=== PATIENT | female | born 1970 | race Caucasian/White ===

== ENCOUNTER 2021-04-14 10:35 | Emergency (ER) | payer SELFPAY ==
[2021-04-14] MEDS ORDERED: MORPHINE 4 MG/1 ML INJ IV ONE (11:21)
[2021-04-14] MEDS ORDERED: SODIUM CHLORIDE 0.9% 1000 ML 1,000 ML IV ONE (11:21)
[2021-04-14] MEDS ORDERED: ONDANSETRON 4 MG/2 ML INJ IV ONE (11:21)
[2021-04-14 11:40] LABS: Basophils % (Auto) 0.4 % (0.0-1.8); Hematocrit 47.2 % (30.3-42.9); Hemoglobin 15.2 gm/dl (10.1-14.3); Lymphocytes # (Auto) 2.2 K/mm3 (1.2-5.4); Lymphocytes % (Auto) 18.5 % (13.4-35.0); Mean Corpuscular HGB Conc 32 % (30-34); Mean Corpuscular Volume 90 fl (79-97); Monocytes % (Auto) 8.2 % (0.0-7.3); Platelet Count 242 K/mm3 (140-440); Red Blood Count 5.27 M/mm3 (3.65-5.03)
[2021-04-14] MEDS ORDERED: FAMOTIDINE 20 MG/2 ML INJ IV ONE (11:59)
--- NOTE | 2021-04-14 11:59 | Emergency Department Report ---
ED General Adult HPI - General Chief complaint: Abdominal Pain Stated complaint: VOMITING Time Seen by Provider: 04/14/21 10:56 Source: patient Mode of arrival: Ambulatory Limitations: Language Barrier - History of Present Illness Initial comments: 50-year-old female patient presents with complaints of abdominal pain and vomiting x3 days. She states she was seen by her doctor and given an unknown shot for symptoms, however she has had no symptom improvement. She denies any hematemesis/coffee-ground emesis, diarrhea, fever/chills/sweats, c hest pain, or shortness of breath. She has a history of hypertension and diabetes. She states the pain is mainly in the right upper quadrant area and also complains of constipation. Severity scale (0 -10): 7 - Related Data Home Medications Medication Instructions Recorded Confirmed Last Taken Hyoscyamine Rapdis 0.125 mg 0.125 mg PO DAILY 04/14/21 04/14/21 Unknown Pantoprazole [Protonix TAB] 40 mg PO DAILY 04/14/21 04/14/21 Unknown Previous Rx's Medication Instructions Recorded Last Taken Type Docusate Sodium [Colace] 100 mg PO BID PRN 7 Days #14 04/14/21 Unknown Rx capsule Famotidine [Pepcid] 20 mg PO BID 10 Days #20 tablet 04/14/21 Unknown Rx Ondansetron [Zofran Odt] 4 mg PO Q8HR PRN #12 tab.rapdis 04/14/21 Unknown Rx Allergies Allergy/AdvReac Type Severity Reaction Status Date / Time albuterol [From Ventolin HFA] Allergy Unknown Verified 04/01/17 17:38 ED Review of Systems ROS: Stated complaint: VOMITING Other details as noted in HPI Constitutional: denies: chills, fever Cardiovascular: denies: chest pain Gastrointestinal: abdominal pain, nausea, vomiting, constipation. denies: hematemesis, melena Genitourinary: denies: urgency, dysuria, frequency, hematuria Neurological: denies: headache, weakness Hematological/Lymphatic: denies: easy bleeding ED Past Medical Hx - Past Medical History Hx Hypertension: Yes Hx Diabetes: Yes - Surgical History Hx Appendectomy: Yes (x 25 years) - Social History Smoking Status: Former Smoker Substance Use Type: None - Medications Home Medications: Home Medications Medication Instructions Recorded Confirmed Last Taken Type Docusate Sodium [Colace] 100 mg PO BID PRN 7 Days #14 04/14/21 Unknown Rx capsule Famotidine [Pepcid] 20 mg PO BID 10 Days #20 tablet 04/14/21 Unknown Rx Hyoscyamine Rapdis 0.125 mg 0.125 mg PO DAILY 04/14/21 04/14/21 Unknown History Ondansetron [Zofran Odt] 4 mg PO Q8HR PRN #12 tab.rapdis 04/14/21 Unknown Rx Pantoprazole [Protonix TAB] 40 mg PO DAILY 04/14/21 04/14/21 Unknown History ED Physical Exam - General Limitations: Language Barrier General appearance: alert, in no apparent distress - Head Head exam: Present: atraumatic, normocephalic - Eye Eye exam: Present: normal appearance. Absent: scleral icterus - Neck Neck exam: Present: normal inspection - Respiratory Respiratory exam: Present: normal lung sounds bilaterally. Absent: respiratory distress - Cardiovascular Cardiovascular Exam: Present: regular rate, normal rhythm - GI/Abdominal GI/Abdominal exam: Present: soft, tenderness (Mid abdomen/right upper quadrant), normal bowel sounds. Absent: distended, rebound - Extremities Exam Extremities exam: Present: full ROM - Neurological Exam Neurological exam: Present: alert, oriented X3 - Psychiatric Psychiatric exam: Present: normal affect, normal mood - Skin Skin exam: Present: warm, dry, intact, normal color. Absent: rash ED Course Vital Signs 04/14/21 04/14/21 10:42 12:30 Temperature 97.3 F L Pulse Rate 82 Respiratory 14 16 Rate Blood Pressure 136/76 [Right] O2 Sat by Pulse 99 Oximetry ED Medical Decision Making - Lab Data Result diagrams: 04/14/21 11:20 04/14/21 11:20 Lab Results 04/14/21 04/14/21 04/14/21 Range/Units 11:20 11:20 Unknown WBC 11.9 H (4.5-11.0) K/mm3 RBC 5.27 H (3.65-5.03) M/mm3 Hgb 15.2 H (10.1-14.3) gm/dl Hct 47.2 H (30.3-42.9) % MCV 90 (79-97) fl MCH 29 (28-32) pg MCHC 32 (30-34) % RDW 14.0 (13.2-15.2) % Plt Count 242 (140-440) K/mm3 Lymph % (Auto) 18.5 (13.4-35.0) % [place] % (Auto) 8.2 H (0.0-7.3) % Eos % (Auto) 0.0 (0.0-4.3) % Baso % (Auto) 0.4 (0.0-1.8) % Lymph # (Auto) 2.2 (1.2-5.4) K/mm3 Merrick # (Auto) 1.0 H (0.0-0.8) K/mm3 Eos # (Auto) 0.0 (0.0-0.4) K/mm3 Baso # (Auto) 0.0 (0.0-0.1) K/mm3 Seg Neutrophils % 72.9 H (40.0-70.0) % Seg Neutrophils # 8.7 H (1.8-7.7) K/mm3 Sodium 137 (137-145) mmol/L Potassium 4.5 (3.6-5.0) mmol/L Chloride 97.4 L (98-107) mmol/L Carbon Dioxide 26 (22-30) mmol/L Anion Gap 18 mmol/L BUN 17 (7-17) mg/dL Creatinine 0.6 (0.6-1.2) mg/dL Estimated GFR > 60 ml/min BUN/Creatinine Ratio 28 % Glucose 147 H (65-100) mg/dL Calcium 11.5 H (8.4-10.2) mg/dL Total Bilirubin 0.90 (0.1-1.2) mg/dL AST 18 (5-40) units/L ALT 27 (7-56) units/L Alkaline Phosphatase 100 (35-129) units/L Total Protein 8.6 H (6.3-8.2) g/dL Albumin 4.6 (3.9-5) g/dL Albumin/Globulin Ratio 1.2 % Lipase 36 (13-60) units/L Urine Color Yellow (Yellow) Urine Turbidity Clear (Clear) Urine pH 5.0 (5.0-7.0) Ur Specific [place] 1.021 (1.003-1.030) Urine Protein 30 mg/dl (Negative) mg/dL Urine Glucose (UA) Neg (Negative) mg/dL Urine Ketones 20 (Negative) mg/dL Urine Blood Neg (Negative) Urine Nitrite Neg (Negative) Urine Bilirubin Neg (Negative) Urine Urobilinogen < 2.0 (<2.0) mg/dL Ur Leukocyte Esterase Neg (Negative) Urine WBC (Auto) 1.0 (0.0-6.0) /HPF Urine RBC (Auto) 1.0 (0.0-6.0) /HPF U Epithel Cells (Auto) 6.0 (0-13.0) /HPF Urine Mucus 1+ /HPF - Radiology Data Radiology results: report reviewed LIMITED RUQ ABDOMINAL ULTRASOUND INDICATION / CLINICAL INFORMATION: pain and vomiting. COMPARISON: No relevant prior imaging study available. FINDINGS: PANCREAS: Visualized portions of the pancreas are within normal limits. ABDOMINAL AORTA: No significant abnormality. IVC: No significant abnormality. LIVER: The liver measures 14.4 cm in length. The liver demonstrates increased echogenicity. No focal hepatic lesion. PORTAL VEIN: Normal hepatopedal blood flow in the main portal vein. GALLBLADDER: The gallbladder is unremarkable. There is no cholelithiasis, gallbladder wall thickening, or pericholecystic fluid. BILE DUCTS: No significant abnormality. Common bile duct measures 3 mm. RIGHT KIDNEY: No significant abnormality visualized. FREE FLUID: None. ADDITIONAL FINDINGS: None. IMPRESSION: 1. Nonspecific diffuse increased hepatic echogenicity, may reflect chronic liver disease or fatty infiltration. 2. Otherwise, no significant abnormality. CT ABDOMEN AND PELVIS WITH CONTRAST HISTORY: acute mid abdominal pain, constipation COMPARISON: None TECHNIQUE: Routine abdominal and pelvic CT exam performed following intravenous contrast administration.. All CT scans at this location are performed using CT dose reduction for ALARA by means of automated exposure control. FINDINGS: CT ABDOMEN: Lung Bases: No significant abnormality. Liver: No significant abnormality. Biliary: No significant abnormality. Spleen: No significant abnormality. Unenlarged. Pancreas: No significant abnormality. Adrenals: No significant abnormality. Kidneys: No significant abnormality. Lymphatics: No lymphadenopathy. Vasculature: No significant abnormality. Bowel/Peritoneum: No significant abnormality. No free air. No free fluid. CT PELVIC: : No significant abnormality. Lymphatics: No lymphadenopathy. Osseous Structures: No aggressive appearing osseous lesions. Additional Findings: None IMPRESSION: 1. No acute findings. - Medical Decision Making 50-year-old female patient presents with complaints of abdominal pain and vomiting x3 days. She states she was seen by her doctor and given an unknown shot for symptoms, however she has had no symptom improvement. She denies any hematemesis/coffee-ground emesis, diarrhea, fever/chills/sweats, chest pain, or shortness of breath. She has a history of hypertension and diabetes. She states the pain is mainly in the right upper quadrant area and also complains of constipation. White count mildly elevated at 11.9 on CBC. No other significant abnormalities noted on labs. Ultrasound is negative. CT abdomen is also negative. Patient's pain has resolved with meds given here in the ED. Vitals are normal, she is well-appearing and stable for discharge home. Recommend follow-up with GI. Referral provided. Strict return precautions discussed in detail with patient who verbalized understanding. Critical care attestation.: If time is entered above; I have spent that time in minutes in the direct care of this critically ill patient, excluding procedure time. ED Disposition Clinical Impression: Abdominal pain, Constipation Disposition: 01 HOME / SELF CARE / HOMELESS Is pt being admited?: No Condition: Stable Instructions: Abdominal Pain (ED), Constipation, Adult, Abdominal Pain, Adult, [id number] Prescriptions: Docusate Sodium [Colace] 100 mg PO BID PRN 7 Days #14 capsule PRN Reason: constipation Famotidine [Pepcid] 20 mg PO BID 10 Days #20 tablet Ondansetron [Zofran Odt] 4 mg PO Q8HR PRN #12 tab.rapdis PRN Reason: Nausea Referrals: PRIMARY CARE, [Primary Care Provider] - 3-5 Days [facility] [Provider Group] - 3-5 Days Forms: Work/School Release Form(ED) Print Language: GU[place]
[2021-04-14 12:05] LABS: Alanine Aminotransferase 27 units/L (7-56); Albumin 4.6 g/dL (3.9-5); Blood Urea Nitrogen 17 mg/dL (7-17); Calcium 11.5 mg/dL (8.4-10.2); Hemolysis Index 14
[2021-04-14 12:06] LABS: BUN/Creatinine Ratio 28
--- NOTE | 2021-04-14 12:42 | Ultrasound Report ---
LIMITED RUQ ABDOMINAL ULTRASOUND INDICATION / CLINICAL INFORMATION: pain and vomiting. COMPARISON: No relevant prior imaging study available. FINDINGS: PANCREAS: Visualized portions of the pancreas are within normal limits. ABDOMINAL AORTA: No significant abnormality. IVC: No significant abnormality. LIVER: The liver measures 14.4 cm in length. The liver demonstrates increased echogenicity. No focal hepatic lesion. PORTAL VEIN: Normal hepatopedal blood flow in the main portal vein. GALLBLADDER: The gallbladder is unremarkable. There is no cholelithiasis, gallbladder wall thickening , or pericholecystic fluid. BILE DUCTS: No significant abnormality. Common bile duct measures 3 mm. RIGHT KIDNEY: No significant abnormality visualized. FREE FLUID: None. ADDITIONAL FINDINGS: None. IMPRESSION: 1. Nonspecific diffuse increased hepatic echogenicity, may reflect chronic liver disease or fatty in filtration. 2. Otherwise, no significant abnormality. Signer Name: Jonathan Meza MD Signed: 04/14/2021 12:37 PM Workstation Name: [email or web address] [email or web address]
[2021-04-14 13:02] LABS: Bilirubin,Urine NEG (Negative); Blood,Urine NEG (Negative); Color,Urine Yellow (Yellow); Mucus,Urine 1+ /HPF; Urobilinogen,Urine < 2.0 mg/dL (<2.0)
--- NOTE | 2021-04-14 13:38 | Cat Scan Report ---
CT ABDOMEN AND PELVIS WITH CONTRAST HISTORY: acute mid abdominal pain, constipation COMPARISON: None TECHNIQUE: Routine abdominal and pelvic CT exam performed following intravenous contrast administrat ion.. All CT scans at this location are performed using CT dose reduction for ALARA by means of autom ated exposure control. FINDINGS: CT ABDOMEN: Lung Bases: No significant abnormality. Liver: No significant abnormality. Biliary: No significant abnormality. Spleen: No significant abnormality. Unenlarged. Pancreas: No significant abnormality. Adrenals: No significant abnormality. Kidneys: No significant abnormality. Lymphatics: No lymphadenopathy. Vasculature: No significant abnormality. Bowel/Peritoneum: No significant abnormality. No free air. No free fluid. CT PELVIC: : No significant abnormality. Lymphatics: No lymphadenopathy. Osseous Structures: No aggressive appearing osseous lesions. Additional Findings: None IMPRESSION: 1. No acute findings. Signer Name: Adam Jackson MD Signed: 04/14/2021 1:34 PM Workstation Name: [id number]
[2021-04-14 14:45] VITALS: BP 119/75
== END 2021-04-14 14:46 | disposition home or self-care (01) ==
LOC: ED 10:35
DX: R10.9 Unspecified abdominal pain (principal); K59.00 Constipation, unspecified; I10 Essential (primary) hypertension; E11.9 Type 2 diabetes mellitus without complications; Z90.89 Acquired absence of other organs; Z87.891 Personal history of nicotine dependence; Z88.9 Allergy status to unspecified drugs, medicaments and biological substances
CPT/HCPCS: 36415; 74177; 76705; 80053; 81001; 83690; 85025; 96361; 96374; 96375; 99284; J2270; J2405; J3490; J7030; Q9967; Q0162